=== PATIENT | male | born 1970 | race Caucasian/White ===

== ENCOUNTER → 2024-07-31 07:15 | Outpatient (REF) | payer BC, SELFPAY | LOC: RCS 07:15 | PROVIDERS: ATTENDING PHYSICIAN Internal Medicine; FAMILY PHYSICIAN Internal Medicine | DX: Z95.2 Presence of prosthetic heart valve (principal); I25.810 Atherosclerosis of coronary artery bypass graft(s) without angina pectoris; I50.22 Chronic systolic (congestive) heart failure | CPT/HCPCS: 93306 ==

== ENCOUNTER → 2024-11-04 08:01 | Outpatient (REF) | payer BC, SELFPAY | LOC: RCS 08:01 | PROVIDERS: ATTENDING PHYSICIAN Internal Medicine; FAMILY PHYSICIAN Internal Medicine | DX: Z95.2 Presence of prosthetic heart valve (principal); I25.810 Atherosclerosis of coronary artery bypass graft(s) without angina pectoris; I50.22 Chronic systolic (congestive) heart failure | CPT/HCPCS: 93308; 93321; 93325 ==

== ENCOUNTER → 2024-12-01 07:38 | Outpatient (REF) | payer BC, SELFPAY | LOC: DHCBC/DCA 07:38 | PROVIDERS: ATTENDING PHYSICIAN Internal Medicine; FAMILY PHYSICIAN Internal Medicine | DX: I50.22 Chronic systolic (congestive) heart failure (principal); I25.810 Atherosclerosis of coronary artery bypass graft(s) without angina pectoris; I48.0 Paroxysmal atrial fibrillation; E78.2 Mixed hyperlipidemia | CPT/HCPCS: 78452; 93017; A9500; J2785 ==

== ENCOUNTER 2024-12-04 09:21 | Day surgery (SDC) | payer BC, SELFPAY ==
--- NOTE | 2024-12-02 10:16 | HPS.HSE ---
Family Physician
-
Family Physician: Jewel Stoner
Chief Complaint
-
Congestive heart failure, reduced ejection fraction. PVCs. Abnormal stress test.
History of Present Illness
The patient is a 54 year old male presenting today with congestive heart failure. He is on current pharmacological therapy with Jardiance and Metoprolol Succinate for this diagnosis. Further guideline directed medical therapy has been
limited due to episodes of hypotension. He appears well compensated on serial physical exams; however, he does report intermittent dyspnea. He also was previously diagnosed with second degree AV heart block after undergoing a mechanical mitral valve
replacement and CABG x2 in December 2019. Because of this diagnosis, he underwent a Medtronic pacemaker insertion at that time. His routine library media specialist, Dr. Bhanu Tomlinson, recently advised he proceed with an echocardiogram and stress test given
his complex cardiovascular history. His echocardiogram on 11/04/2024 revealed a severely reduced ejection fraction of 25%, severe hypokinesis of the inferoseptal, inferior, and inferolateral champagne, and a well-seated mechanical mitral valve with
normal function. His stress test on 12/01/2024 confirmed his severely reduced ejection fraction while also revealing PVCs in ventricular couplets and triplets and a 3 beat run of nonsustained ventricular tachycardia. Given these findings, it is
recommended he proceed with an upgrade to ICD. He denies any current complaints today such as chest pain, shortness of breath at rest, palpitations, nausea, vomiting, diarrhea, lightheadedness, dizziness, cough, sore throat, or fever.
Medical History
Past Medical History
Past Medical History: Reports Other
Additional Past Medical History:
1. Congestive heart failure, reduced ejection fraction.
2. PVCs.
3. Abnormal stress test.
4. Hyperlipidemia.
5. Severe mitral regurgitation, status post mechanical mitral valve replacement 12/2019; on Warfarin.
5. 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
6. Transient, post-operative atrial fibrillation, status post TOMI-guided cardioversion, 12/2019, and subsequent cardioversion 02/2020.
7. Second degree heart block following mitral valve replacement and CABG, status post Medtronic pacemaker insertion 12/2019.
8. Nonsustained ventricular tachycardia.
9. Left bundle branch block.
10. Left lower extremity DVT, 06/2019, treated with Eliquis.
11. Venous varicosities.
Past Surgical History: Reports Other
Additional Past Surgical History:
1. TOMI-guided cardioversion.
2. Cardioversion.
3. Mechanical mitral valve replacement.
4. CABG x2.
5. Medtronic pacemaker insertion.
6. Cardiac catheterization x2.
7. Right knee meniscectomy.
8. Colonoscopy.
Social History
Tobacco: Non-smoker
Alcohol: Other (He reports social alcohol use on the weekends. )
Personal:
Living: Other (He lives in a 3 story home with his . He reportedly has two kids away at college. )
Family History
Family History: Not pertinent
Allergies / Home Medications
Allergy/Medication List:
Home medications:
1. Aspirin 81 mg p.o. daily.
2. Atorvastatin 20 mg p.o. daily.
3. Jardiance 10 mg p.o. at bedtime.
4. Lovenox 100 mg subcutaneous as needed.
5. Metoprolol Succinate 50 mg p.o. daily.
6. Multivitamin 2 gummies p.o. daily.
7. Warfarin 9 mg p.o. on Sundays, Mondays, Tuesdays, and Wednesdays.
8. Warfarin 6 mg p.o. on , Fridays, and Saturdays.
Allergies: No known allergies.
Review of Systems
-
A 12 point ROS was completed and negative except as noted: Yes
Physical Exam
Vital Signs
Blood pressure 141/94. Heart rate 52. Respirations 18. Pulse ox 99% on room air.
Height 6 feet, 1 inch. Weight 99.8 kg. BMI 29.0.
Physical Exam
General: Well Developed, Well Nourished and No Apparent Distress
HEENT: NormoCephalic, Moist mucous membranes, Atraumatic and PERRLA
Respiratory: Clear
Cardiac: Regular Rhythm (with frequent ectopy. ) and Other (Pacemaker site intact. )
GI: Soft, Non Tender and Non Distended
Musculoskeletal: Normal Gait & Station
Skin: Warm and Dry
Neuro: AO x 3 and Nonfocal/grossly intact
Laboratory Results
-
DIAGNOSTIC STUDIES as of 12/02/2024: White blood cell count 6.7. Hemoglobin 16.7. Platelet count 185,000. Sodium 140. Potassium 4.5. BUN 13. Creatinine 0.9. Glucose 102. Calcium 9.2. AST 26. ALT 22. Albumin 4.7.
EKG 12/02/2024: Sinus rhythm with first degree AV block and frequent PVCs. Left bundle branch block.
Nuclear stress test 12/01/2024: Abnormal study. PVCs in couplets and triplets. 3 beat run of nonsustained ventricular tachycardia. Negative ECG for ischemia given the pharmacological study. Myocardial perfusion imaging reveals a large area of
severely decreased/absent tracer uptake that is fixed in the basal inferior, basal inferolateral, basal inferoseptal, mid inferolateral, mid inferior, mid inferoseptal, apical inferior, and apical segments consistent with infarction. Systolic
function is severely reduced. The ejection fraction is 21%. Stress Risk is high risk study (>3% PR or /year). Compared with the study performed on 05/16/2021, there is no significant change.
Echocardiogram 11/04/2024: Left ventricle is severely dilated (LVIDD 7.0 cm) with severely reduced systolic function (ejection fraction is 25%). Severe hypokinesis of the inferoseptal, inferior, and inferolateral champagne. Dilated right ventricle with
normal systolic function. Well-seated mechanical mitral valve with normal function (mean 5 mmHg). Elevated pulmonary artery systolic pressure (44 mmHg).
Impression/Plan
-
IMPRESSION/PLAN:
1. Congestive heart failure with reduced ejection fraction, PVCs, and abnormal stress test: The patient is in need of an pacemaker upgrade to ICD with Dr. Tulio Granado on 12/04/2024. The benefits and risks of the procedure have been explained to
the patient. The patient understands these risks and wishes to proceed. He is aware that he may continue his Warfarin uninterrupted prior to his procedure.
[2024-12-02 10:17] VITALS: BMI 29.0
[2024-12-02 10:37] LABS: % Basophils 0.6 % (0-2); % Immature Granulocytes 0.3 % (0-0.5); % Monocytes 8.1 % (1.7-9.3); Absolute Eosinophils 0.1 10^3/uL (0-0.7); Absolute Lymphocytes 0.8 10^3/uL (1.2-3.4); Absolute Monocytes 0.5 10^3/uL (0.1-0.6); Absolute Neutrophils 5.1 10^3/uL (1.4-6.5); Hematocrit 51.8 % (39.0-52.0); Hemoglobin 16.7 g/dL (13.0-18.0); Mean Corp Hgb Conc. 32.2 g/dL (33.0-37.0); Mean Corpuscular Hgb 28.2 pg (27.0-31.0); Mean Corpuscular Volume 87.5 fL (80.0-94.0); Mean Platelet Volume 11.2 fL (7.4-10.4); Nucleated Red Blood Cells % 0 % (-); Platelet Count 185 10^3/uL (130-400); Red Blood Cell Count 5.92 10^6/uL (4.70-6.10); Red Cell Dist. Width 13.8 % (11.5-14.5); White Blood Cell Count 6.7 10^3/uL (4.8-10.8)
[2024-12-02 12:02] LABS: ALT (SGPT) 22 U/L (0-50); AST (SGOT) 26 U/L (17-59); Albumin 4.7 g/dl (3.5-5.0); Alkaline Phosphatase 87 U/L (38-126); Blood Urea Nitrogen 13 mg/dl (9-20); Calcium 9.2 mg/dl (8.4-10.2); Carbon Dioxide 28 mmol/L (22-30); Chloride 102 mmol/L (98-107); Estimated Creatinine Clearance 105 ml/min; Glucose 102 mg/dl (70-99); Potassium 4.5 mmol/L (3.5-5.1); Sodium 140 mmol/L (135-145); Total Bilirubin 1.7 mg/dl (0.2-1.3); Total Protein 7.6 g/dl (6.3-8.2); eGFR > 60.00
[2024-12-04] VITALS (9 sets, daily range): BP systolic 103–125; BP diastolic 67–84; BMI 28.9
--- NOTE | 2024-12-04 09:46 | W.ICD.CONTRA ---
Post ICD/[employer]
-
History of MO?: Yes
LV Function
Left ventricular function study result?: Ejection Fraction </= 35%
ACEI/ARB/ARNI
Patient already on ACEI/ARB/ARNI: No
ACEI/ARB/ARNI Contraindication: Hypotension
Beta-Dina
Patient already on Beta Dina: Yes
[2024-12-04] MEDS: ANCEF 5 IV (16:46)
--- NOTE | 2024-12-04 16:53 | W.PN.UPDATE ---
Update Note
Progress Note Update
54 yo WM s/p BiV ICD upgrade, site stable with pressure dressing intact, CXR no PTX leads in good position, EKG AsVpaced. He will continue coumadinn dose tonight. Activity restrictions reviewed. He will get another dose of IV antibiotics prior to
d/c home at 5pm. His incision check will be in 1 week.
--- NOTE | 2024-12-04 17:54 | ITS.CL.ICD ---
[employer] - ICD
Implantable Cardioverter Defibrillator
Procedure Report:
Date of Procedure: December 04, 2024.
Procedures: Upgrade from a dual chamber pacemaker to a BiV ICD: Insert RV ICD lead, insert LV/CS lead, explant dual chamber pacer generator, insert BiV ICD generator, and pocket revision.
Indication: Primary prevention ICD. NYHA heart failure class: III for more than 9 months. LVEF 21%. LBBB with QRS 124 ms. No known VT/VF. Ischemic cardiomyopathy with a history of prior ID. Life expectancy is more than 1 year.
Performing physician: Tulio Granado MD, [facility].
Implants:
Pulse Generator: Medtronic; Model# [id number]; Serial# [id number].
Right Ventricular Lead: Medtronic; Model# [id number]; Serial# [id number].
Left Ventricular Lead: Medtronic; Model# 4798-88cm; Serial# [id number].
Retained Atrial Lead (implanted 01/20/2020): Medtronic: Model# 5076-45cm; Serial# [id number].
Capped and reusable RV pacing lead (implanted 01/20/2020): Medtronic; Model# 5076-45cm; Serial# [id number].
Explanted pacemaker pulse generator (implanted 01/20/2020): Medtronic; Model# [id number]; Serial# [id number].
Technique: A time out was performed. A 10 mL upper extremity venogram demonstrated patent left cephalic, axillary, and subclavian veins. The procedure site was identified. The patient was anesthetized by the anesthesia service. Preoperative
cefazolin was administered. The patient was prepped and draped in the usual fashion. Local anesthetic was applied to the left prepectoral subcutaneous tissue. The left axillary vein was accessed with 2 separate percutaneous micropuncture set without
any difficulty. A 3 inch incision was made along the left deltopectoral groove over the scar of the pacemaker. Dissection was carried to the fascia. The leads were introduced with hemostatic peel away introducer sheaths. The ventricular lead was
placed at the right ventricular apical septum. The ventricular lead was secured to the pectoralis muscle and fascia with two 0-silk sutures. The coronary sinus was accessed with the aid of the Attain Command Sure Valve [id number] system (extended hook)
within 1 minute without difficulty. Coronary sinus venography revealed only a lateral vein of medium to large caliber. The left ventricular lead was placed in the lateral vein. Diaphragmatic stimulation occurred from multiple poles when the lead was
placed distally. The lead was withdrawn to more proximal location and actively fixated. There were multiple acceptable configurations available at this location. The LV lead was secured to the pectoralis muscle and fascia. 8 volt pacing did not
capture the diaphragm from any lead in the final programmed vector. The old pacemaker was then explanted. The right ventricular pacing lead was capped and secured with 0 silk suture. The subcutaneous pocket was revised. Hemostasis was excellent.
The leads were appropriately attached to the device. The pocket was irrigated with antibiotic solution. The device and leads were placed in the pocket. The incision was closed in three layers with absorbable suture. Steri-strips and an silver
impregnated dressing were placed. Estimated blood loss 10-15 ml. There were no complications. Fluoroscopy: time 7.1 minutes and DAP 3.34 GyCM2. The device was then interrogated after skin closure. Total IV contrast 23 mL.
System Analysis:
RA lead: P: 2.9 mV; Threshold: 0.5 V @ 0.4 ms; Impedance: 418 ohms.
RV lead: R:12.1 mV; Threshold: 0.5 V @ 0.4 ms; Impedance: 589 ohms. HVB 74 ohms
LV lead (LV2 =>LV1): Threshold: 1.75 V @ 0.4 ms; Impedance: 456 ohms.
Final Programming: Tachy: VT/VF:188 bpm; Cachorro: DDDR 60-120 bpm.
Conclusion: Uncomplicated upgrade from dual chamber pacemaker to a BiV-ICD implant. The ICD system is not currently labeled MRI safe/conditional by the FDA because of the capped RV lead.
Recommendation: Routine post ICD care.
cc: Bhanu Tomlinson MD and Jewel Stoner MD.
== END 2024-12-04 17:09 | disposition home or self-care (01) ==
LOC: CATH 09:21
PROVIDERS: ATTENDING PHYSICIAN Internal Medicine Cardiovascular Disease; FAMILY PHYSICIAN Internal Medicine; OTHER PHYSICIAN Internal Medicine
DX: I11.0 Hypertensive heart disease with heart failure (principal); I50.22 Chronic systolic (congestive) heart failure; I44.7 Left bundle-branch block, unspecified; I44.1 Atrioventricular block, second degree; Z95.2 Presence of prosthetic heart valve; I95.9 Hypotension, unspecified; Z95.1 Presence of aortocoronary bypass graft; Z45.018 Encounter for adjustment and management of other part of cardiac pacemaker; E78.5 Hyperlipidemia, unspecified; I25.2 Old myocardial infarction; I48.91 Unspecified atrial fibrillation; Z86.718 Personal history of other venous thrombosis and embolism; I47.20 Ventricular tachycardia, unspecified; Z79.82 Long term (current) use of aspirin; Z79.84 Long term (current) use of oral hypoglycemic drugs; Z79.01 Long term (current) use of anticoagulants; Z79.899 Other long term (current) drug therapy; I25.5 Ischemic cardiomyopathy; I49.3 Ventricular premature depolarization
CPT/HCPCS: 33249; 33225; 33233; 36415; 71045; 80053; 85025; 93005; C1769; C1777; C1882; C1892; C1900; Q9967

== ENCOUNTER 2025-06-07 07:00 | Day surgery (SDC) | payer BC, SELFPAY | END 2025-06-07 10:05 | disposition home or self-care (01) | LOC: CATH 07:00 | PROVIDERS: ATTENDING PHYSICIAN Internal Medicine; FAMILY PHYSICIAN Internal Medicine; OTHER PHYSICIAN Internal Medicine Cardiovascular Disease | DX: I48.91 Unspecified atrial fibrillation (principal); Z79.01 Long term (current) use of anticoagulants; I25.10 Atherosclerotic heart disease of native coronary artery without angina pectoris; Z95.1 Presence of aortocoronary bypass graft; I48.92 Unspecified atrial flutter | CPT/HCPCS: 92960; 93005 ==

== ENCOUNTER 2025-06-16 06:56 | Emergency (ER) | payer BC, SELFPAY ==
[2025-06-16 07:05] VITALS: BP 113/79
--- NOTE | 2025-06-16 07:18 | ED.GENMED ---
History of Present Illness
General
Chief Complaint: Back Pain
Source: patient and records
Exam Limitations: none
Time Seen by Provider: 06/16/25 07:09
Nursing documentation reviewed up to this point in time: agreed with
History of Present Illness
History of Present Illness:
54-year-old male with history as noted presents to the ER for evaluation of low back pain. Triage note mentions middle back pain but pain is located lower lumbar region when asked the patient to identify during my assessment. Patient reports onset
of symptoms yesterday afternoon�he says he was moving some food into his freezer (nothing heavy) when he noticed that as he was bending over he had pain in the low back. He says that initially he thought he would rest for the evening and see out
felt this morning and when he started pain decided to come to the ER for assessment. He cannot recall any trauma or inciting injury. He reports pain located in the lumbar region essentially directly in the middle. Denies any radicular symptoms.
He denies any weakness or numbness in the legs. He denies any saddle anesthesia. Denies any bowel or bladder incontinence. He is on Coumadin for history of valve replacement and atrial fibrillation. He did have a recent synchronized
cardioversion for A-fib with Dr. Tomlinson on 06/08/2025 but has not had any issues since.
Review of Systems
Review of Systems
All Other Systems: ROS reviewed and negative except as documented in HPI and ROS
Constitutional: Denies fever
Respiratory: Denies trouble breathing
Cardiac: Denies chest pain
ABD/GI: Denies abdominal pain
: Denies flank pain
Musculoskeletal: Reports back pain; Denies neck pain
Neurological: Denies weakness or numbness
Phy Exam
Physical Exam
Physical Exam:
General: Awake, alert, oriented x3; no acute distress
Head: Normocephalic, atraumatic
Eyes: Conjunctiva normal
Throat: Airway intact, handling secretions
Neck: Trachea midline, moving comfortably without apparent pain
Lungs: Breathing comfortably no distress
Heart: Regular rate
Abd: Soft, non distended, nontender with no palpable masses
Back: Patient does have midline tenderness L4-L5 region, no spinal step-offs, no bruising or signs of trauma to the extremities; negative straight leg raise bilaterally
Neuro: Cranial nerves grossly intact, speech fluid; motor and sensory intact in the lower extremities proximally and distally; ambulatory with normal gait
Skin: no rash
Extremities: No edema in extremities, warm and well-perfused s
Scores
Heart Failure Risk
Heart Failure Risk Score: Not Applicable
Heart Score for Chest Pain Patients
STEMI patient?: Not applicable
Withdrawal Assessment of Alcohol
Withdrawal Assessment Completed?: Not applicable
Course
Orders/Labs/Results
Orders:
Orders
06/16/25 07:16
CT Lumbar Spine W/o Iv Contras Urgent
Comment:
Reason For Exam: low back pain, on blood thinners, TTP L4/L5
06/16/25 07:17
Acetaminophen [Tylenol] 1,000 mg PO NOW STA
Lidocaine [Lidocaine 4% Patch] 1 patch TOPICAL ONCE ONE
Apply Lidocaine patch(s) to:: low back
06/16/25 07:46
Prothrombin Time Urgent
Abnormal Lab Results
06/16/25
07:46
PT 28.7 H Sec
(11.4-14.6)
Vital Signs
Initial and Last Documented VS:
Initial Vital Signs
Temp Pulse Resp BP Pulse Ox
36.4 C 71 18 113/79 97
06/16/25 07:05 06/16/25 07:05 06/16/25 07:05 06/16/25 07:05 06/16/25 07:05
Last Documented Vital Signs
Temp Pulse Resp BP Pulse Ox
36.4 C 71 18 113/79 97
06/16/25 07:05 06/16/25 07:05 06/16/25 07:05 06/16/25 07:05 06/16/25 07:19
MDM/Problems Addressed
Differential Diagnosis Includes:
Compression fracture, myofascial strain, flank/back,, back spasms
MDM/Problems Addressed:
54-year-old male presents to the emergency room for evaluation of low back pain that started yesterday in the absence of any apparent inciting injury/trauma. No red flag symptoms. Vital signs normal. He is on blood thinners for cardiac history.
Will check INR. Sent for CT lumbar region. Treat symptomatically. Reassess after the above.
CT shows no acute abnormalities. INR therapeutic. Vital stable. Suspect likely muscular back pain. Had a long discussion with patient about options for pain control�he feels Tylenol and Lidoderm or not sufficient and so we will prescribe short
course of oxycodone that I advised him to use only as needed. We also discussed conservative measures including heat/ice, stretching, avoidance of provoking activities, etc. He can follow-up with his primary care physician. He feels comfortable
with this plan. All questions answered.
Chronic conditions affecting care:
History of A-fib and artificial valve on Warfarin
*Radiology
Radiology exam reviewed: radiology read reviewed
*Pulse Oximetry
SaO2: 97
Oxygen Mode of Delivery: Room air
Patient hypoxic: no (97%)
*Critical Care Note
Total Time (30-74mins, 75-104mins- exclusive of procedures): Not Applicable
Data Reviewed
Source: patient and records
Update Note
Update Note:
Queried PDMP�no red flags
ED Attending Note
-
Portions of this chart may have been created with voice recognition software.� Occasional wrong word or��sound alike� substitutions may have occurred due to the inherent limitations of voice recognition software.
Discharge Plan
Departure
Patient Disposition: Home (Routine Discharge)
Date of Disposition: 06/16/25
Time of Disposition: 09:23
Patient with high blood pressure during this ER visit?: No
Discharge Problem:
Low back pain
Instructions: Low Back Pain (DC)
Prescriptions:
New
oxycodone 5 mg tablet
5 mg PO TID PRN (Reason: Pain) Qty: 10 0RF
No Action
atorvastatin 20 MG tablet
20 mg PO DAILY
metoprolol succinate 50 MG tablet extended release 24 hr
50 mg PO HS
aspirin 81 mg Tablet,Delayed Release (Dr/Ec)
81 mg PO DAILY
Jardiance 10 mg Tablet
10 mg PO HS
warfarin 3 MG tablet
9 mg PO SUMOTUWE
warfarin [Jantoven] 3 MG tablet
6 mg PO THFRSA
multivit with min-folic acid [Multivitamin Gummies] 200 mcg Tablet,Chewable
2 tab PO DAILY
Referrals:
Jewel Stoner MD [Family Provider, Internal Medicine] - Follow up in 5-7 days
Activity Restrictions/Additional Instructions:
Thank you for visiting the Emergency Department at [facility].
1. Please schedule a follow up appointment as directed. Call first thing tomorrow morning to make an appointment.
2. If indicated, please take your medications as instructed and indicated on discharge paperwork.
3. If any of your symptoms do not improve, or persist, or become more severe within 6-12 hours, please return to the emergency department for further care.
4. Please return to the emergency department if you develop a headache, neck pain/stiffness, fever greater than 100.4F, chest pain, shortness of breath, persistent nausea, vomiting, slurred speech, difficulty walking, numbness/tingling, weakness,
signs of infection or any other symptoms that are worrisome to you.
Please call [phone] if you have any questions.
Interventions
Interventions:
*Risk Screen - Suicide Last Done: 06/16/25 07:05
*General Assessment Last Done: 06/16/25 07:05
*Neglect/Abuse Screening Last Done: 06/16/25 07:51
*ED- Fall Risk Assessment Last Done: 06/16/25 07:51
*ED COVID-19 Vaccine History Last Done: 06/16/25 07:51
ED-Musculoskeletal Assessment Last Done: 06/16/25 07:51
Discharge Date and Time
Print Language: MARSHALLESE
[2025-06-16] MEDS: TYLENOL 1000 MG PO (07:39)
[2025-06-16] MEDS: LIDOCAINE 4% PATCH 1 PATCH TOPICAL (07:39)
[2025-06-16 08:15] LABS: INR 2.66; PT 28.7 Sec (11.4-14.6)
== END 2025-06-16 09:30 | disposition home or self-care (01) ==
LOC: EMR 06:56
PROVIDERS: EMERGENCY PHYSICIAN Emergency Medicine; FAMILY PHYSICIAN Internal Medicine
DX: M54.50 Low back pain, unspecified (principal); I48.91 Unspecified atrial fibrillation; I48.92 Unspecified atrial flutter; R01.1 Cardiac murmur, unspecified; Z79.01 Long term (current) use of anticoagulants; Z95.2 Presence of prosthetic heart valve; Z95.810 Presence of automatic (implantable) cardiac defibrillator
CPT/HCPCS: 99284; 72131; 85610

== ENCOUNTER → 2025-07-30 07:55 | Outpatient (REF) | payer BC, SELFPAY | LOC: RCS 07:55 | PROVIDERS: ATTENDING PHYSICIAN Nurse Practitioner Acute Care; FAMILY PHYSICIAN Internal Medicine | DX: I42.8 Other cardiomyopathies (principal) | CPT/HCPCS: 93306; Q9950 ==